=== PATIENT | male | born 1960 | race Hispanic/Latino ===

== ENCOUNTER 2018-01-25 14:07 | Emergency (ER) | payer OTHER ==
[2018-01-25] MEDS ORDERED: PREDNISONE 20 MG TABLET ONE (14:48)
[2018-01-25] MEDS ORDERED: ORPHENADRINE CITRATE 30 MG/ML ML ONE (14:49)
== END 2018-01-25 15:17 | disposition home or self-care (01) ==
LOC: EDH 14:07
DX: M54.10 Radiculopathy, site unspecified (principal); M54.9 Dorsalgia, unspecified; I10 Essential (primary) hypertension; F32.9 Major depressive disorder, single episode, unspecified; F43.10 Post-traumatic stress disorder, unspecified; E78.5 Hyperlipidemia, unspecified; E11.9 Type 2 diabetes mellitus without complications
CPT/HCPCS: 96372; 99283; J2360